=== PATIENT | male | born 1955 | race Caucasian/White ===

== ENCOUNTER 2020-09-20 21:47 | Emergency (ER) | payer OTHER ==
[~2020-09-20 21:47] MED LIST: COZAAR 100MG T100 MG PO; LIPITOR20 MG PO; NORVASC5 MG PO
== END 2020-09-20 23:23 | disposition left against medical advice (07) ==
LOC: FER 21:47
DX: Z53.8 Procedure and treatment not carried out for other reasons (principal)
CPT/HCPCS: 93005